=== PATIENT | male | born 1935 | race Caucasian/White ===

== ENCOUNTER 2023-04-15 06:38 | Day surgery (SDC) | payer MEDICARE, OTHER ==
[~2023-04-15] VITALS: Ht 182.9 cm; Wt 99.8 kg
[2023-04-15] VITALS (7 sets, daily range): BP systolic 109–137; BP diastolic 49–62; PULSE 40–52; RESP 12–19; O2SAT 94–98
[~2023-04-15 06:38] MED LIST: APIX5TAB PO; ATO40T PO; FENO145T27 PO; FINA5TAB4 PO; LOSA100T58 PO; MULT-1018 PO; TAMS0.4C36 PO
[2023-04-15] MEDS ORDERED: VERAPAMIL 2.5MG/ML INJ 2ML VIAL IV ONE (07:29)
[2023-04-15] MEDS ORDERED: IOHEXOL 350 MG/ML 100ML IJ ONE (07:29)
[2023-04-15] MEDS ORDERED: LIDOCAINE 2%HCL (LOCAL ANESTH.) INJ 20ML MDV ONE (07:30)
[2023-04-15] MEDS ORDERED: HEPARIN IN NS 1000Units/500mL 1,500 ML ONE (07:30)
[2023-04-15] MEDS ORDERED: ANGIOMAX 250 MG VIAL IV ONE (07:49)
[2023-04-15] MEDS ORDERED: fentaNYL CITRATE 100 MCG/2 ML VL ONE (07:50)
[2023-04-15] MEDS ORDERED: MIDAZOLAM HCL 2MG/2ML 2ml VIAL (1mg/ml) ONE (07:50)
[2023-04-15] MEDS ORDERED: SODIUM CHL 0.9% 0 ML ONE (07:50)
[2023-04-15] MEDS ORDERED: HEPARIN SODIUM (PORCINE) 5000 UNITS/ML 1ML VIAL ONE (08:23)
== END 2023-04-15 11:08 | disposition home or self-care (01) ==
LOC: CATH 06:38
PROVIDERS: ATTEND Internal Medicine Cardiovascular Disease
DX: R94.39 Abnormal result of other cardiovascular function study (principal); I25.10 Atherosclerotic heart disease of native coronary artery without angina pectoris; M19.90 Unspecified osteoarthritis, unspecified site; I48.91 Unspecified atrial fibrillation; I10 Essential (primary) hypertension; Z87.891 Personal history of nicotine dependence; Z79.899 Other long term (current) drug therapy; Z98.890 Other specified postprocedural states
CPT/HCPCS: 93458; C1725; C1894; J1644; J2250; J3010; Q9967; 99152